=== PATIENT | male | born 1970 | race Caucasian/White ===

== ENCOUNTER 2017-05-29 21:22 | Emergency (ER) | payer OTHER ==
[~2017-05-29] VITALS: Ht 177.8 cm; Wt 90.5 kg
[2017-05-29 21:57] LABS: HEMATOCRIT 47.6 % (38.0-50.0); HEMOGLOBIN 16.7 G/DL (12.5-16.6); MCH 29.8 PG (29.0-34.0); MCHC 35.1 G/DL (30.0-36.0); MCV 84.8 FL (86-99); PLATELET COUNT 191 K/uL (156-360); RBC DIS.WIDTH-CV 12.3 % (11.8-14.6); RBC DIS.WIDTH-SD 38.1 % (39-53); RED BLOOD COUNT 5.61 M/uL (4.00-5.50); WHITE BLOOD COUNT 6.1 K/uL (4.1-10.2)
[2017-05-29 22:08] LABS: CHLORIDE 101 mEq/L (99-109); POTASSIUM 4.5 mEq/L (3.7-5.4); SODIUM 135 mEq/L (136-147)
[2017-05-29 22:10] LABS: GLUCOSE 94 mg/dL (70-99)
[2017-05-29 22:14] LABS: CREATININE 1.1 mg/dL (0.6-1.3)
[2017-05-29 22:15] LABS: GFR ESTIMATE (CALCULATED) > 59 mL/min/ (58.99-99999); UREA NITROGEN (BUN) 22 mg/dL (9-23)
[2017-05-29 23:18] VITALS: BP 151/80
== END 2017-05-29 23:18 | disposition home or self-care (01) ==
LOC: EME 21:22
DX: I10 Essential (primary) hypertension (principal); G40.909 Epilepsy, unspecified, not intractable, without status epilepticus; F41.9 Anxiety disorder, unspecified; F32.9 Major depressive disorder, single episode, unspecified; Z86.73 Personal history of transient ischemic attack (TIA), and cerebral infarction without residual deficits; Z87.891 Personal history of nicotine dependence; Z82.3 Family history of stroke; Z88.0 Allergy status to penicillin
CPT/HCPCS: 71046; 80048; 85027; 93005; 99281; 99284